=== PATIENT | male | born 1970 | race Two or more races ===

== ENCOUNTER 2024-12-11 11:00 | Day surgery (SDC) | payer BC, SELFPAY ==
[2024-12-08 14:48] VITALS: BMI 29.6
[2024-12-11] VITALS (11 sets, daily range): BP systolic 117–152; BP diastolic 73–100; PULSE 58–78; RESP 10–20; TEMP 36.5–36.7; O2SAT 95–100; BMI 29.0
--- NOTE | 2024-12-11 12:06 | SUR.PREOP ---
UNABLE TO OBTAIN HOME MEDS. THE PATIENT STATED THAT HE IS TAKING SOME MEDICATIONS THAT IS BEING PRESCRIBED TO HIM BUT HE IS NOT ABLE TO STATE THE NAME OF THE MEDICATIONS OR WHY HE IS TAKING THEM FOR. PT STATED HIS IS TAKING CARE OF HIS MEDS AND SHE KNOWS MORE ABOUT HIS HEALTH THAN HE IS.
[2024-12-11] MEDS: LIDOCAINE JELLY 2% (Urojet) 10 ML TUBE TOP (13:30)
[2024-12-11] MEDS: MIDAZOLAM INJ 1 MG/ML VIAL 2 ML (ASD USE ONLY) 2 MG IV (13:32)
[2024-12-11] MEDS: fentaNYL CIT INJ 50 mCg/ML AMP 2ML (ASD USE ONLY) IV (13:32)
[2024-12-11] MEDS: SODIUM CHLORIDE 0.9% 500 ML 500 ML 20 ML IV (13:32)
[2024-12-11] MEDS: DiphenhydrAMINE INJ 50 MG/ML VIAL 25 MG IV (13:33)
== END 2024-12-11 14:20 | disposition home or self-care (01) ==
PROVIDERS: PCP Family Medicine; Referring Provider Specialist; Visit Provider Specialist
PROC: 0DBE8ZX Excision of Large Intestine, Via Natural or Artificial Opening Endoscopic, Diagnostic (ICD-10-PCS; CPT 45380; principal; 2024-12-11 11:45)
PROC: (CPT 43239; 2024-12-11 11:45)
DX: K64.9 Unspecified hemorrhoids (principal)
CPT/HCPCS: 45378; A4649; J1200; J2250; J3010; J7040